=== PATIENT | male | born 1965 | race Hispanic/Latino ===

== ENCOUNTER 2022-11-11 08:33 | Emergency (ER) | payer SELFPAY ==
--- NOTE | 2022-11-11 09:06 | RAD REPORT ---
EXAM DESCRIPTION: Sharon Cole And Olvin (2 Views)11/11/2022 9:00 am CLINICAL HISTORY: Cough COMPARISON: None FINDINGS: The lungs appear clear of acute infiltrate. The heart is normal size IMPRESSION: No acute abnormalities displayed
[2022-11-11 11:27] LABS: Absolute Lymphocytes (CBC) 1.7 K/uL (0.7-4.9); Hematocrit 49.7 % (39.6-49.0); Lymphocytes % 27.2 % (15.3-44.8); MCV 92.1 fL (80-100); MPV 7.5 fL (7.6-11.3)
[2022-11-11 11:46] LABS: SARS-COV-2 RT PCR NEGATIVE (NEGATIVE)
[2022-11-11 11:52] LABS: Troponin High Sensitivity 7.7 pg/mL (<58.9)
--- NOTE | 2022-11-11 12:39 | RAD REPORT ---
EXAM DESCRIPTION: CT - Chest For Pe Angio - 11/11/2022 12:17 pm CLINICAL HISTORY: Chest pain. CHEST PAIN COMPARISON: No comparisons TECHNIQUE: CT angiogram of the pulmonary arteries was performed with MIP. All CT scans are performed using dose optimization technique as appropriate and may include automated exposure control or mA/KV adjustment according to patient size. FINDINGS: No evidence of pulmonary thromboembolism. No acute aortic finding demonstrated. The lungs are clear. No significant pericardial or pleural fluid. No concerning bony finding. IMPRESSION: No evidence of pulmonary thromboembolism. No acute lung findings.
--- NOTE | 2022-11-11 13:09 | EDPHYS ---
Physician Documentation [facility] Name: Anish Santoro Age: 57 yrs Sex: Male : 1965 Arrival Date: 11/11/2022 Time: 08:38 Bed DX3 Private MD: ED Physician Zachary Amos HPI: 11/11 08:47 This 57 yrs old Male presents to ER via Unassigned with complaints of Cough, rn Burning Sensation All Over. 08:47 The patient or guardian reports cough, described as mild, with no sputum. Onset: The rn symptoms/episode began/occurred 3 day(s) ago. Severity of symptoms: At their worst the symptoms were mild, in the emergency department the symptoms are unchanged. Modifying factors: The symptoms are alleviated by nothing, the symptoms are aggravated by nothing. Associated signs and symptoms: Pertinent positives: fever, rhinorrhea, sore throat, Pertinent negatives: diarrhea, ear ache, vomiting. The patient has not experienced similar symptoms in the past. The patient has not recently seen a physician. Pt reports "cold" over the weekend, cough not getting better, + congestion, + subjective fever. NO diarrhea or abd pain. Reports chest burning posterior thorax, no hemoptysis, no hx of PE. + smoker.. Historical: - Allergies: 09:13 No Known Allergies; ss - Home Meds: 09:13 None [Active]; ss - PMHx: 09:13 None; ss - PSHx: 09:13 None; ss - Immunization history:: Client reports receiving the 2nd dose of the Covid vaccine. - Social history:: Smoking status: Patient reports the use of cigarette tobacco products, denies chronic smoking, but will smoke occasionally. - Family history:: not pertinent. - Hospitalizations: : No recent hospitalization is reported. ROS: 08:47 Constitutional: + fever Eyes: Negative for injury, pain, redness, and discharge, ENT: + rn congestion and sore throat Neck: Negative for injury, pain, and swelling, Cardiovascular: Negative for chest pain, palpitations, and edema, Respiratory: + cough Abdomen/GI: Negative for abdominal pain, nausea, vomiting, diarrhea, and constipation, MS/Extremity: Negative for injury and deformity, Skin: Negative for injury, rash, and discoloration, Neuro: Negative for headache, weakness, numbness, tingling, and seizure. Exam: 08:47 Constitutional: This is a well developed, well nourished patient who is awake, alert, rn and in no acute distress. Ambulatory to triage without difficulty Head/Face: Normocephalic, atraumatic. Eyes: Pupils equal round and reactive to light, extra-ocular motions intact. ENT: NO pharyngeal erythema, no stridor, MMM Neck: Trachea midline, no thyromegaly or masses palpated, and no cervical lymphadenopathy. Supple, full range of motion without nuchal rigidity, or vertebral point tenderness. No Meningismus. Cardiovascular: Regular rate and rhythm. No pulse deficits. Respiratory: No increased work of breathing, no retractions or nasal flaring. Abdomen/GI: soft, non-tender Back: No spinal tenderness. No costovertebral tenderness. Full range of motion. Skin: Warm, dry MS/ Extremity: Pulses equal, no cyanosis Neuro: Awake and alert, GCS 15 11:11 ECG was reviewed by the Attending Physician. rn Vital Signs: 09:11 BP 150 / 105; Pulse 71; Resp 18; Temp 98.2(O); Pulse Ox 97% on R/A; Weight 90.72 kg; ss Height 5 ft. 5 in. (165.10 cm); Pain 0/10; 09:11 Body Mass Index 33.28 (90.72 kg, 165.10 cm) ss MDM: 08:39 Patient medically screened. rn 11:04 Differential Diagnosis: Bronchitis Influenza Upper Respiratory Infection Sinusitis rn Pharyngitis Viral Syndrome Pneumonia Other PE, pleurisy, pneumonitis, COVID, flu. Independent interpretation of the following test(s) in the Emergency Department EKG: See my EKG interpretation above X-Ray: My interpretation is CXR images neg for pneumonia/pneumothorax. 13:08 Data reviewed: vital signs, nurses notes, lab test result(s), EKG, radiologic studies, rn CT scan, plain films, and as a result, I will discharge patient. Consideration of Admission/Observation Escalation of care including admission/observation considered. Counseling: I had a detailed discussion with the patient and/or guardian regarding: the historical points, exam findings, and any diagnostic results supporting the discharge/admit diagnosis, lab results, radiology results, the need for outpatient follow up, to return to the emergency department if symptoms worsen or persist or if there are any questions or concerns that arise at home. Counseling: I had a detailed discussion with the patient and/or guardian regarding: smoking cessation. Response to treatment: the patient's symptoms have mildly improved after treatment, and as a result, I will discharge patient. Special discussion: I discussed with the patient/guardian in detail that at this point there is no indication for admission to the hospital. It is understood, however, that if the symptoms persist or worsen the patient needs to return immediately for re-evaluation. 13:08 Counseling: I had a detailed discussion with the patient and/or guardian regarding: the rn presence of at least one elevated blood pressure reading (>120/80) during this emergency department visit. 11/11 08:46 Order name: COVID-19/FLU A+B rn 11/11 10:58 Order name: Basic Metabolic Panel rn 11/11 10:58 Order name: CBC with Diff rn 11/11 10:58 Order name: NT PRO-BNP rn 11/11 10:58 Order name: Troponin HS rn 11/11 11:31 Order name: CBC with Automated Diff; Complete Time: 11:35 EDWY 11/11 08:46 Order name: XRAY Chest Pa And Lat (2 Views) rn 11/11 09:07 Order name: RAD; Complete Time: 10:15 EDWY 11/11 10:58 Order name: CT Chest For PE Angio rn 11/11 11:46 Order name: COVID-19/FLU A+B; Complete Time: 11:50 EDMS 11/11 11:52 Order name: Basic Metabolic Panel; Complete Time: 12:03 EDMS 11/11 11:52 Order name: Troponin High Sensitivity; Complete Time: 12:03 EDMS 11/11 11:52 Order name: NT PRO-BNP; Complete Time: 12:03 EDMS 11/11 12:40 Order name: CT; Complete Time: 13:07 EDMS 11/11 08:46 Order name: EKG; Complete Time: 08:47 rn 11/11 08:46 Order name: EKG - Nurse/Tech; Complete Time: 11:19 rn 11/11 10:58 Order name: IV Saline Lock; Complete Time: 11:19 rn 11/11 10:58 Order name: Labs collected and sent; Complete Time: 11: rn 11/11 10:58 Order name: O2 Per Protocol; Complete Time: 11:19 rn EC:11 Rate is 67 beats/min. Rhythm is regular. QRS Addison is Normal. TN interval is normal. QRS rn interval is normal. QT interval is normal. No Q waves. T waves are Normal. No ST changes noted. Clinical impression: Normal ECG. Interpreted by me. Reviewed by me. Administered Medications: No medications were administered Disposition Summary: 11/11/22 13:09 Discharge Ordered Location: Home rn Problem: new rn Symptoms: have improved rn Condition: Stable rn Diagnosis - Cough rn - Chest pain, unspecified rn Followup: rn - With: Private Physician - When: As needed - Reason: Recheck today's complaints, Re-evaluation by your physician Discharge Instructions: - Discharge Summary Sheet rn - Nonspecific Chest Pain, Adult rn - Hypertension, Adult rn - Pain Without a Known Cause rn - Pleurisy rn - Steps to Quit Smoking rn - Cough, Adult rn Forms: - Medication Reconciliation Form rn - Thank You Letter rn - Antibiotic harness mender - Prescription Opioid Use rn - Work release form ss Signatures: Dispatcher [employer] Zachary Dia MD MD rn Kimberly Luna RN RN
--- NOTE | 2022-11-11 13:09 | ER ---
Nurse's Notes [facility] Name: Anish Santoro Age: 57 yrs Sex: Male : 1965 Arrival Date: 11/11/2022 Time: 08:38 Bed DX3 Private MD: Diagnosis: Cough;Chest pain, unspecified Presentation: 11/11 09:11 Chief complaint: Patient states: intermittent burning sensation that began over a week ss ago to chest, neck and back. Coronavirus screen: Client denies travel out of the [place] in the last 14 days. Ebola Screen: Patient denies exposure to infectious person. Patient denies travel to an Ebola-affected area in the 21 days before illness onset. Initial Sepsis Screen: Does the patient meet any 2 criteria? No. Patient's initial sepsis screen is negative. Does the patient have a suspected source of infection? No. Patient's initial sepsis screen is negative. Risk Assessment: Do you want to hurt yourself or someone else? Patient reports no desire to harm self or others. Onset of symptoms was November 04, 2022. 09:11 Method Of Arrival: Ambulatory ss 09:11 Acuity: AAYUSH 3 ss Historical: - Allergies: 09:13 No Known Allergies; ss - Home Meds: 09:13 None [Active]; ss - PMHx: 09:13 None; ss - PSHx: 09:13 None; ss - Immunization history:: Client reports receiving the 2nd dose of the Covid vaccine. - Social history:: Smoking status: Patient reports the use of cigarette tobacco products, denies chronic smoking, but will smoke occasionally. - Family history:: not pertinent. - Hospitalizations: : No recent hospitalization is reported. Vital Signs: 09:11 BP 150 / 105; Pulse 71; Resp 18; Temp 98.2(O); Pulse Ox 97% on R/A; Weight 90.72 kg; ss Height 5 ft. 5 in. (165.10 cm); Pain 0/10; 09:11 Body Mass Index 33.28 (90.72 kg, 165.10 cm) ED Course: 08:38 Patient arrived in ED. rg4 08:39 Zachary Amos MD is Attending Physician. rn 09:13 Triage completed. ss 09:13 Arm band placed on right wrist. ss 11:19 Inserted saline lock: 22 gauge in left antecubital area, using aseptic technique. Blood ss collected. 13:32 Kimberly Luna, JAKOB is Primary Nurse. ss 13:35 No provider procedures requiring assistance completed. Patient did not have IV access ss during this emergency room visit. Administered Medications: No medications were administered Outcome: 13:09 Discharge ordered by . rn 13:35 Discharged to home ambulatory, with family. ss 13:35 Condition: good 13:35 Discharge instructions given to patient, family, Instructed on discharge instructions, follow up and referral plans. Demonstrated understanding of instructions, follow-up care. 13:35 Patient left the ED. ss Signatures: Zachary Amos MD MD rn Smirch, Shelby, RN RN ss Garcia, Rubi rg4
[2022-11-11 13:40] VITALS: BP 150/105; TEMP 98.2; O2SAT 97
--- NOTE | 2022-11-11 16:37 | EKG ---
Test Date: 2022-11-11 Test Time: 11:10:17 Hand Rug Braider: CLAUDIO MEASUREMENT RESULTS: Intervals: Rate: 67 CT: 180 QRSD: 96 QT: 414 QTc: 437 Fairplay: P: 31 CT: 180 QRS: 9 T: 70 INTERPRETIVE STATEMENTS: Normal sinus rhythm Normal ECG No previous ECG available for comparison Electronically Signed On 11-11-22 16:36:12 PAINT FORMULATOR by Yassine Buchanan
== END 2022-11-11 13:35 | disposition home or self-care (01) ==
LOC: ER 08:33
DX: R05.9 Cough, unspecified (principal); R07.9 Chest pain, unspecified; F17.210 Nicotine dependence, cigarettes, uncomplicated; Z20.822 Contact with and (suspected) exposure to COVID-19
CPT/HCPCS: 0240U; 36415; 71046; 71275; 80048; 83880; 84484; 85025; 93005; 99283

== ENCOUNTER 2023-07-02 14:40 | Emergency (ER) | payer OTHER ==
--- OUTSIDE RECORDS SUMMARY | 2023-07-02 14:43 | XMS REPORT | Continuity of Care Document ---
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 Social History Social Habit Start Date Stop Date Quantity Comments Source Gender identity Tereso crow - External Sexual orientation Tereso Raymundo - External History of tobacco Cigarette Smoker Tereso Raymundo use - External Alcohol Comment 2023-06-05 2023-06-05 social Tereso crow 00:00:00 00:00:00 - External Alcohol intake 2023-06-05 2023-06-05 Current drinker Charla Raymundo 00:00:00 00:00:00 of alcohol - External (finding) History of Social 2023-06-05 2023-06-05 Tereso Raymundo function 00:00:00 00:00:00 - External Sex Ass[birth year] At [birth year] Tereso crow 00:00:00 00:00:00 - External Smoking Status Start Date Stop Date Source Occasional tobacco smoker 2023-06-05 00:00:00 Ryder freitas Seybold - External Medications Ordered Filled Start Stop Current Ordering Indication Dosage Frequency Signature Comments Components Source Medication Medication Date Date Medication? Clinician (SIG) Name Name Amoxicillin 2022- No TAKE 1 Drake y -Pot 05-23 TABLET BY Seybold Clavulanate 00:00: 00:00 MOUTH IN - 875-125 MG 00 :00 THE Externa oral Tablet MORNING l AND 1 IN THE EVENING NEOMYCIN-PO 2022- No INSTILL 3 Tereso LYMYXIN-HC, 05-23 DROPS INTO S eybold OTIC, 1 % 00:00: 00:00 EACH EAR - otic 00 :00 IN THE Externa Solution MORNING, 3 l DROPS AT NOON, 3 DROPS IN THE EVENING AND 3 DROPS BEFORE BEDTIME FOR 10 DAYS Cyclobenzap Yes 5mg Q.5D Take 1 Nika ey rine HCl 5 02 tablet (5 Seyb old MG oral 00:00: mg total) - Tablet 00 by mouth 2 Externa times l daily as needed. Paroxetine 2022- No 20mg Take 1 Nika ey HCl 20 MG 11-21 tablet (20 Sey bold oral Tablet 00:00: 00:00 mg total) - 00 :00 by mouth Externa every l morning. Vital Signs Vital Name Observation Time Observation Value Comments Source Systolic blood 2023-06-05 14:57:00 140 mm[Hg] Tereso Bootheybold - pressure External Diastolic blood 2023-06-05 14:57:00 98 mm[Hg] Charla cardona Seybold - pressure External Heart rate 2023-06-05 14:57:00 72 /min Tereso S lissethbold - External Body temperature 2023-06-05 14:57:00 36.44 Vanda Nika ey Seybold - External Respiratory rate 2023-06-05 14:57:00 15 /min Nika ey Seybold - External Body height 2023-06-05 14:57:00 165.1 cm Tereso Phillips eybold - External Body weight 2023-06-05 14:57:00 91.627 kg Tereso montanezboaury - External BMI 2023-06-05 14:57:00 33.61 kg/m2 Tereso Phillips eybold - External Procedures This patient has no known procedures. Encounters Start End Encounter Admission Attending Care Care Encounter Source Date/Time Date/Time Type Type Clinicians Facility Department ID 2023-07-02 2023-07-02 Outpatient TERESO CANDELARIO [id number] Tereso 00:00:00 00:00:00 GABINO Seybol d 2023-06-12 2023-06-12 Outpatient TERESO BRADSHAW [id number] Tereso 09:30:00 09:30:00 STELLA Seybol d 2023-06-11 2023-06-11 Outpatient TERESO BRADSHAW [id number] Tereso 00:00:00 00:00:00 STELLA Seybol d 2023-06-09 2023-06-09 Outpatient TERESO BRADSHAW [id number] Tereso 00:00:00 00:00:00 STELLA Seybol d 2023-06-05 2023-06-05 Outpatient LAB90 TERESO RIDER [id number] Tereso 10:50:00 10:50:00 Seybol d 2023-06-05 2023-06-05 Outpatient TERESO BRADSHAW [id number] Tereso 10:00:00 10:00:00 STELLA Seybol d 2023-06-05 2023-06-05 Outpatient TERESO RIDER [id number] Tereso 00:00:00 00:00:00 Seybol d Results This patient has no known results.
[2023-07-02] MEDS ORDERED: HYDROCODONE/APAP 5/325 MG TAB ONE (15:20)
--- NOTE | 2023-07-02 16:05 | RAD REPORT ---
EXAM DESCRIPTION: RAD - Forearm Right - 07/02/2023 3:53 pm CLINICAL HISTORY: Pain;Swelling COMPARISON: No comparisons FINDINGS: Soft tissue swelling is seen affecting the forearm. No acute fracture or dislocation.
--- NOTE | 2023-07-02 16:05 | RAD REPORT ---
EXAM DESCRIPTION: RAD - Elbow Right 3 View - 07/02/2023 3:53 pm CLINICAL HISTORY: Pain;Swelling COMPARISON: No comparisons FINDINGS: There is a prominent olecranon spur present. No fracture or dislocation seen. Moderate sof t tissue swelling is evident medially and dorsally.
--- NOTE | 2023-07-02 16:23 | RAD REPORT ---
EXAM DESCRIPTION: US - Extremity Venous Uni Ltd - 07/02/2023 4:18 pm CLINICAL HISTORY: Pain;Swelling Arm swelling and edema. COMPARISON: No comparisons FINDINGS: Right upper extremity venous system was interrogated with Doppler technique. Normal flow, compressibility and augmentation was noted. There is no DVT present. IMPRESSION: No evidence of right upper extremity deep venous thrombosis.
[2023-07-02 16:59] LABS: Absolute Lymphocytes (CBC) 2.3 K/uL (0.7-4.9); Hematocrit 45.1 % (39.6-49.0); Lymphocytes % 19.6 % (15.3-44.8); MPV 7.8 fL (7.6-11.3); Platelets 230 thou/uL (152-406); RBC Red Blood Cell Count 4.86 M/uL (4.33-5.43)
--- NOTE | 2023-07-02 17:03 | ER ---
Nurse's Notes [facility] Name: Anish Santoro Age: 58 yrs Sex: Male : 1965 Arrival Date: 07/02/2023 Time: 14:40 Bed 11 Private MD: Diagnosis: Cellulitis of right upper limb Presentation: 07/02 14:53 Chief complaint: Patient states: he started having right elbow swelling Friday. Patient ap3 denies any trauma to the elbow. patient reports the pain to be 6/10 on the pain scale at this time. Coronavirus screen: At this time, the client does not indicate any symptoms associated with coronavirus-19. Ebola Screen: No symptoms or risks identified at this time. Initial Sepsis Screen: Does the patient meet any 2 criteria? No. Patient's initial sepsis screen is negative. Does the patient have a suspected source of infection? No. Patient's initial sepsis screen is negative. Risk Assessment: Do you want to hurt yourself or someone else? Patient reports no desire to harm self or others. Onset of symptoms was June 30, 2023. 14:53 Method Of Arrival: Ambulatory ap3 14:53 Acuity: AAYUSH 3 ap3 Triage Assessment: 14:55 General: Appears uncomfortable, Behavior is calm, cooperative, appropriate for age. ap3 Pain: Complains of pain in right elbow Pain currently is 6 out of 10 on a pain scale. Pain began gradually, 2-3 days ago. Neuro: Level of Consciousness is awake, alert, obeys commands, Oriented to person, place, time, situation. Cardiovascular: Patient's skin is warm and dry. Respiratory: Airway is patent Respiratory effort is even, unlabored, Respiratory pattern is regular, symmetrical. Historical: - Allergies: 14:54 No Known Allergies; ap3 - Home Meds: 14:54 None [Active]; ap3 - PMHx: 14:54 None; ap3 - Immunization history:: Client reports receiving the 2nd dose of the Covid vaccine. - Social history:: Smoking status: Patient reports the use of cigarette tobacco products, denies chronic smoking, but will smoke occasionally. Screenin:55 [facility] ED Fall Risk Assessment (Adult) History of falling in the last 3 months, ap3 including since admission No falls in past 3 months (0 pts). Abuse screen: Denies threats or abuse. Nutritional screening: No deficits noted. Tuberculosis screening: No symptoms or risk factors identified. Assessment: 15:13 Reassessment: No changes from previously documented assessment. Patient and/or family ll1 updated on plan of care and expected duration. Pain level reassessed. Patient is alert, oriented x 3, equal unlabored respirations, skin warm/dry/pink. 16:59 Reassessment: Patient appears in no apparent distress at this time. Patient and/or iw family updated on plan of care and expected duration. Pain level reassessed. Patient is alert, oriented x 3, equal unlabored respirations, skin warm/dry/pink. Patient states feeling better. Vital Signs: 14:53 BP 143 / 107; Pulse 72; Resp 17; Temp 98.7; Pulse Ox 100% ; Weight 90.72 kg; Pain 6/10; ap3 14:53 Pain Scale: Adult ap3 ED Course: 14:41 Patient arrived in ED. rg4 14:54 Triage completed. ap3 14:55 Trupti Nettles PA-C is PHCP. sb4 14:55 Christian Coto MD is Attending Physician. sb4 14:55 Arm band placed on left wrist. ap3 15:13 Susan Castillo, JAKOB is Primary Nurse. ll1 15:13 Patient has correct armband on for positive identification. Bed in low position. Call ll1 light in reach. Cardiac monitoring not applicable on this patient. 15:54 Elbow Right 3 View XRAY In Process Unspecified. EDMS 15:54 Forearm Right XRAY In Process Unspecified. EDMS 16:12 Angela Ye, RN is Primary Nurse. iw 16:20 Extremity Venous Uni Ltd US In Process Unspecified. EDMS 16:50 Inserted saline lock: 20 gauge in left antecubital area, using aseptic technique. iw 17:01 Brad Terry MD is Referral Physician. sb4 17:33 Provided Education on: medications . iw 17:33 No provider procedures requiring assistance completed. IV discontinued, intact, iw bleeding controlled, No redness/swelling at site. Pressure dressing applied. Administered Medications: 15:11 Drug: HYDROcodone-acetaminophen PO 5 mg-325 mg 2 tabs PO once {Note: pain 7/10, RASS ll1 0.} Route: PO; 17:32 Follow up: Response: No adverse reaction; Pain is decreased iw 16:57 Drug: Clindamycin IVPB 900 mg IVPB once over 30 mins; (mix in 50 mL) Route: IVPB; iw Infused Over: 30 mins; Site: left antecubital; 17:32 Follow up: IV Status: Completed infusion iw Medication: 17:33 VIS not applicable for this client. iw Outcome: 17:02 Discharge ordered by MD. [email or web address] 17:33 Discharged to home ambulatory, with family, iw 17:33 Condition: good 17:33 Discharge instructions given to patient, family, Instructed on discharge instructions, follow up and referral plans. medication usage, Demonstrated understanding of instructions, follow-up care, medications, Prescriptions given X 3, 17:33 Patient left the ED. iw Signatures: Dispatcher [employer] Angela Valencia RN RN Iva Leon rg4 Shania Castle RN RN [email or web address] Susan Castillo RN RN ll1 Trupti Nettles, PA-C PA-Heather sb4
--- NOTE | 2023-07-02 17:03 | EDPHYS ---
Physician Documentation [facility] Name: Anish Santoro Age: 58 yrs Sex: Male : 1965 Arrival Date: 07/02/2023 Time: 14:40 Bed 11 Private MD: ED Physician Christian Coto HPI: 07/02 17:16 This 58 yrs old Male presents to ER via Ambulatory with complaints of Swelling sb4 Of Arm/Elbow. 17:16 Patient states that he noticed his right elbow was starting to swell 2 days ago. He sb4 states that he sustained a minor abrasion at work on his elbow the other day but did not think anything of it. He states that his elbow has slowly become more swollen and is extended into his forearm. He endorses moderate mount of pain with palpation and movement. No pain with supination and pronation, pain increased with extension of the elbow. Denies any fever or chills. No drainage. Historical: - Allergies: 14:54 No Known Allergies; ap3 - Home Meds: 14:54 None [Active]; ap3 - PMHx: 14:54 None; ap3 - Immunization history:: Client reports receiving the 2nd dose of the Covid vaccine. - Social history:: Smoking status: Patient reports the use of cigarette tobacco products, denies chronic smoking, but will smoke occasionally. ROS: 17:16 Constitutional: Negative for fever, chills, and weight loss, sb4 17:16 MS/extremity: Positive for pain, swelling, of the dorsal aspect of right forearm, right elbow and palmar aspect of right forearm, Exam: 17:16 Constitutional: This is a well developed, well nourished patient who is awake, alert, sb4 and in no acute distress. Head/Face: Normocephalic, atraumatic. Eyes: Extra-ocular motions intact. Periorbital areas with no swelling, redness, or edema. ENT: Mucous membranes moist. Neuro: Awake and alert, GCS 15, oriented to person, place, time, and situation. Motor strength 5/5 in all extremities. Sensory grossly intact. 17:16 Musculoskeletal/extremity: ROM: limited active range of motion due to pain, limited passive range of motion due to pain, in the right elbow, Circulation is intact in all extremities. Sensation intact. Compartment Syndrome exam of affected extremity: no numbness, no tingling, no sensation deficit, no palor, no weak pulses, 17:16 Skin: Appearance: Right arm is warm, tense, and tender to the touch. No obvious appearance of cellulitis, Vital Signs: 14:53 BP 143 / 107; Pulse 72; Resp 17; Temp 98.7; Pulse Ox 100% ; Weight 90.72 kg; Pain 6/10; ap3 14:53 Pain Scale: Adult ap3 MDM: 15:00 Patient medically screened. sb4 17:16 Differential diagnosis: Cellulitis, septic joint, joint effusion, fracture, DVT. Data sb4 reviewed: vital signs, nurses notes, lab test result(s), radiologic studies, I have discussed the patient's presentation/case with the attending Emergency Department Physician; and as a result, I will discharge patient. Historians other than the Patient: Spouse/Significant Other: . Counseling: I had a detailed discussion with the patient and/or guardian regarding the historical points, exam findings, and any diagnostic results supporting the discharge/admit diagnosis, the presence of at least one elevated blood pressure reading (>120/80) during this emergency department visit, lab results, radiology results, to return to the emergency department if symptoms worsen or persist or if there are any questions or concerns that arise at home. 07/02 16:30 Order name: CBC with Diff; Complete Time: 17:00 sb4 07/02 16:30 Order name: BMP; Complete Time: 17:09 sb4 07/02 15:01 Order name: Extremity Venous Uni Ltd US; Complete Time: 16:23 sb4 07/02 15:01 Order name: Elbow Right 3 View XRAY; Complete Time: 16:09 sb4 07/02 15:01 Order name: Forearm Right XRAY; Complete Time: 16:09 sb4 07/02 16:40 Order name: Ice pack; Complete Time: 17:32 sb4 07/02 17:13 Order name: Sling; Complete Time: 17:32 sb4 Administered Medications: 15:11 Drug: HYDROcodone-acetaminophen PO 5 mg-325 mg 2 tabs PO once {Note: pain 7/10, RASS ll1 0.} Route: PO; 17:32 Follow up: Response: No adverse reaction; Pain is decreased iw 16:57 Drug: Clindamycin IVPB 900 mg IVPB once over 30 mins; (mix in 50 mL) Route: IVPB; iw Infused Over: 30 mins; Site: left antecubital; 17:32 Follow up: IV Status: Completed infusion iw Disposition: 17:58 Co-signature as Attending Physician, Christian Coto MD I agree with the assessment and kdr plan of care. Disposition Summary: 07/02/23 17:02 Discharge Ordered Notes: Location: Home sb4 Problem: new sb4 Symptoms: have improved sb4 Condition: Stable sb4 Diagnosis - Cellulitis of right upper limb sb4 Followup: sb4 - With: Brad Terry MD - When: 1 week - Reason: Recheck today's complaints, Re-evaluation by your physician Discharge Instructions: - Discharge Summary Sheet sb4 - Cellulitis, Adult sb4 Forms: - Work release form sb4 - Medication Reconciliation Form sb4 - Thank You Letter sb4 - Antibiotic Education sb4 - Prescription Opioid Use sb4 - Patient Portal Instructions sb4 - Leadership Thank You Letter sb4 Prescriptions: - Tramadol 50 mg Oral Tablet - take 1 tablet ORAL route every 8 hours as needed; 12 tablet; Refills: 0, sb4 Product Selection Permitted - Medrol (Ced) 4 mg Oral Tablets, Dose Pack - take 1 tablet ORAL route as directed - follow package instructions; 1 packet; sb4 Refills: 0, Product Selection Permitted - Bactrim DS 800-160 mg Oral Tablet - take 1 tablet ORAL route every 12 hours for 10 days; 20 tablet; Refills: 0, sb4 Product Selection Permitted Signatures: Dispatcher [employer] Christian Hernandez MD MD kdr Williams, Irene, RN RN Shania Houser RN RN ap3 Susan Castillo RN RN ll1 Trupti Nettles PA-C PAModesta sb4
[2023-07-02] MEDS ORDERED: CLINDAMYCIN 900MG/D5W 900 MG/50 ML IVPB IV ONE (17:07)
[2023-07-02 17:08] LABS: Potassium 3.7 mEq/L (3.5-5.1)
[2023-07-02 18:22] VITALS: BP 143/107; TEMP 98.7; O2SAT 100
== END 2023-07-02 17:33 | disposition home or self-care (01) ==
LOC: ER 14:40
DX: L03.113 Cellulitis of right upper limb (principal); F17.210 Nicotine dependence, cigarettes, uncomplicated
CPT/HCPCS: 36415; 80048; 85025; 93971

== ENCOUNTER 2024-03-23 10:09 | Emergency (ER) | payer OTHER ==
--- OUTSIDE RECORDS SUMMARY | 2024-03-23 10:12 | XMS REPORT | Continuity of Care Document ---
Author Name Unknown Address [address] [place] [address]. [address] th[address] Address [address] [facility]. 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 9 [id number] 2023 00:00:00 Problems Condition Name Condition Details Condition Category Status Onset Date Resolution Date Last Treatment Date Treating Clinician Comments Source Myxoid cyst Myxoid cyst Disease Active 02-02 00:00: 00 Tereso Cooperold - Externa l Well adult exam Well adult exam Disease Active 06-05 00:00: 00 Tereso Raymundo - Externa l Muscle spasms of both lower extremitie s Muscle spasms of both lower extremitie s Disease Active 06-05 00:00: 00 Tereso Cooperold - Externa l Obesity (BMI 30-39.9) Obesity (BMI 30-39.9) Disease Active 06-05 00:00: 00 Tereso Cooperold - Externa l Muscle spasms of both lower extremitie s Muscle spasms of both lower extremitie s Disease Active 06-05 00:00: 00 Tereso Bootheybold - Externa l Social History Social Habit Start Date Stop Date Quantity Comments Source Gender identity Nika Raymundo - External Sexual orientation Shaun Raymundo - External History of tobacco use Cigarette Smoker Tereso Kenneth ramos - External Alcoholic beverage intake 2024-02-03 00:00:00 2024-02-03 00:00:00 Current drinker of alcohol (finding) Tereso Breanne - External Alcohol intake 2023-07-10 00:00:00 2023-07-10 00:00:00 Current drinker of alcohol (finding) Tereso Raymundo - External History of Social function 2023-06-10 00:00:00 2023-06-10 00:00:00 Tereso Raymundo - External Alcohol Comment 2023-06-05 00:00:00 2023-06-05 00:00:00 social Tereso Raymundo - External Sex [birth year] at 1965 00:00:00 1965 00:00:00 Teresoolinda Raymundo - External Smoking Status Start Date Stop Date Source Occasional tobacco smoker 2023-06-05 00:00:00 Tereso Raymundo - External Medications Ordered Medication Name Filled Medication Name Start Date Stop Date Current Medication? Ordering Clinician Indication Dosage Frequency Signature (SIG) Comments Components Source Amoxicillin -Pot Clavulanate 875-125 MG oral Tablet 02-02 00:00: 00 Yes [id number] 1{tbl} Take 1 tablet by mouth 2 times daily Please take with food. Tereso mcfarland TRIMETHOPRI M-SULFAMETH OXAZOLE (BACTRIM DS) 800-160 MG oral Tablet 2022-09 0 00:00: 00 02-02 00:00 :00 No 1{tbl} Take 1 tablet by mouth every 12 hours FOR 10 DAYS. Tereso mcfarland Tramadol HCl (ULTRAM) 50 MG oral Tablet 2022-09 0 00:00: 00 02-02 00:00 :00 No 50mg [id number] 3D Take 1 tablet (50 mg total) by mouth every 8 hours as needed. Tereso mcfarland methylPREDN ISolone 4 MG oral Tablet Therapy Pack 2022-09 0 00:00: 00 02-02 00:00 :00 No TAKE BY MOUTH DIRECTED ON INSIDE OF PACKAGE Tereso mcfarland Amoxicillin -Pot Clavulanate 875-125 MG oral Tablet 9-01 00:00: 00 06-05 00:00 :00 No TAKE 1 TABLET BY MOUTH IN THE MORNING AND 1 IN THE EVENING Tereso mcfarland NEOMYCIN-PO LYMYXIN-HC, OTIC, 1 % otic Solution 9-01 00:00: 00 06-05 00:00 :00 No INSTILL 3 DROPS INTO EACH EAR IN THE MORNING, 3 DROPS AT NOON, 3 DROPS IN THE EVENING AND 3 DROPS BEFORE BEDTIME FOR 10 DAYS Tereso mcfarland Cyclobenzap rine HCl 5 MG oral Tablet 3-02 00:00: 00 02-02 00:00 :00 No 5mg Q.5D Take 1 tablet (5 mg total) by mouth 2 times daily as needed. Tereso mcfarland Paroxetine HCl 20 MG oral Tablet 3-02 00:00: 00 06-05 00:00 :00 No 20mg Take 1 tablet (20 mg total) by mouth every morning. Tereso mcfarland Immunizations Ordered Immunization Name Filled Immunization Name Date Status Comments Source Influenza, Injectable, Mdck, Quadrivalent With Preservative 2023-06-05 00:00:00 Completed Tereso Raymundo - External Influenza, Injectable, Mdck, Quadrivalent With Preservative Unknown Completed Tereso Messina Influenza, Injectable, Mdck, Quadrivalent With Preservative Unknown Completed Tereso Raymundo - External Vital Signs Vital Name Observation Time Observation Value Comments S ource Systolic blood pressure 2024-02-03 18:46:00 130 mm[Hg] Tereso jeffers - External Diastolic blood pressure 2024-02-03 18:46:00 72 mm[Hg] Tereso jeffers - External Heart rate 2024-02-03 18:46:00 77 /min Charla Raymundo - External Body temperature 2024-02-03 18:46:00 36.83 Vanda Tereso Messina Respiratory rate 2024-02-03 18:46:00 20 /min Tereso Haskins External Body height 2024-02-03 18:46:00 165.1 cm Nika ey Seybold - External Body weight 2024-02-03 18:46:00 90.266 kg Nika ey Seybold - External BMI 2024-02-03 18:46:00 33.12 kg/m2 Nika ey Seybold - External Oxygen saturation in Arterial blood by Pulse oximetry 2024-02-03 18:46:00 93 /min Tereso Seybo ld - External Systolic blood pressure 2023-07-10 21:17:00 134 mm[Hg] Tereso Seybo ld - External Diastolic blood pressure 2023-07-10 21:17:00 84 mm[Hg] Tereso Seybo ld - External Heart rate 2023-07-10 20:55:00 93 /min Kelse y Seybold - External Body temperature 2023-07-10 20:55:00 36.5 Vanda Tereso Seybold - External Respiratory rate 2023-07-10 20:55:00 15 /min Tereso Seybold - External Body height 2023-07-10 20:55:00 165.1 cm Nika ey Seybold - External Body weight 2023-07-10 20:55:00 91.627 kg Nika ey Seybold - External BMI 2023-07-10 20:55:00 33.61 kg/m2 Nika ey Seybold - External Oxygen saturation in Arterial blood by Pulse oximetry 2023-07-10 20:55:00 99 /min Tereso Seybo ld - External Systolic blood pressure 2023-06-05 14:57:00 140 mm[Hg] Tereso Seybo ld - External Diastolic blood pressure 2023-06-05 14:57:00 98 mm[Hg] Tereso Seybo ld - External Heart rate 2023-06-05 14:57:00 72 /min Kelse y Seybold - External Body temperature 2023-06-05 14:57:00 36.44 Vanda Tereso Seybold - External Respiratory rate 2023-06-05 14:57:00 15 /min Tereso Seybold - External Body height 2023-06-05 14:57:00 165.1 cm Nika ey Seybold - External Body weight 2023-06-05 14:57:00 91.627 kg Nika ey Seybold - External BMI 2023-06-05 14:57:00 33.61 kg/m2 Nika Raymundo - External Encounters Start Date/Time End Date/Time Encounter Type Admission Type Attending [facility] Care Department Encounter ID Source 2024-02-17 13:00:00 2024-02-17 13:00:00 Outpatient KELLE TURCIOS [facility] [id number] [facility] 2024-02-03 14:00:00 2024-02-03 14:00:00 Outpatient STELLA BRADSHAW TERESO [id number] Tereso [facility] 2024-02-03 00:00:00 2024-02-03 00:00:00 Outpatient TERESO TERESO [id number] Tereso [facility] 2023-11-25 13:30:00 2023-11-25 13:30:00 Outpatient STELLA BRADSHAW TERESO TERESO [id number] Tereso [facility] 2023-11-17 00:00:00 2023-11-17 00:00:00 Outpatient STELLA BRADSHAW TERESO TERESO [id number] Tereso [facility] 2023-07-24 16:00:00 2023-07-24 16:00:00 Outpatient STELLA BRADSHAW TERESO RIDER [id number] [facility] 2023-07-11 00:00:00 2023-07-11 00:00:00 Outpatient STELLA BRADSHAW TERESO RIDER [id number] [facility] 2023-07-10 16:00:00 2023-07-10 16:00:00 Outpatient STELLA BRADSHAW TERESO TERESO [id number] Tereso [facility] 2023-07-08 00:00:00 2023-07-08 00:00:00 Outpatient ALLYSONGABINO Phillips TERESO RIDER [id number] [facility] 2023-07-02 00:00:00 2023-07-02 00:00:00 Outpatient YO CANDELARIOAND [facility]DI[facility] [id number] [facility]12 09:30:00 2023-06-12 09:30:00 Outpatient LEEANN STELLA TERESO RIDER [id number] [facility] 2023-06-11 00:00:00 2023-06-11 00:00:00 Outpatient STELLA BRADSHAW [id number] Teres[facility] 2023-06-09 00:00:00 2023-06-09 00:00:00 Outpatient STELLA BRADSHAW [id number] Te[facility] 2023-06-05 10:50:00 2023-06-05 10:50:00 Outpatient LAB90 TERESO RIDER [id number] [facility] 2023-06-05 10:00:00 2023-06-05 10:00:00 Outpatient STELLA BRADSHAW [id number] Te[facility] 2023-06-05 00:00:00 2023-06-05 00:00:00 Outpatient TERESO TERESO [id number] Tereso [facility] Notes Date/Time Note Provider Source 2023-06-05 10:02:50 [id number]:50F ormatting of this note is different from the original.Chief Complaint Patient presents with Physical Patient is fasting. No other issues [place] [id number] [id number]:03:52Nurse [id number] for patient [id number] NoteLNKELMERCY HEALTH [facility]IETTAEPRegency Hospital [facility] [facility] [id number] [facility]"
[2024-03-23] MEDS ORDERED: KETOROLAC 30 MG/ML INJ ONE (10:37)
[2024-03-23 10:55] LABS: Absolute Eosinophils 0.2 K/uL (0-0.5); Absolute Lymphocytes (CBC) 2.1 K/uL (0.7-4.9); Absolute Monocytes 0.7 K/uL (0.1-1.3); Absolute Neutrophil 5.6 K/uL (1.8-8.0); Basophils % 0.5 % (0-1.3); Eosinophils % 2.8 % (0-4.4); Hematocrit 48.1 % (39.6-49.0); Hemoglobin 16.3 g/dL (13.6-17.9); Lymphocytes % 24.7 % (15.3-44.8); MCH 31.6 pg (27.0-35.0); MCV 93.1 fL (80-100); MPV 7.8 fL (7.6-11.3); Monocytes % 7.9 % (3.3-12.3); Neutrophils % 64.1 % (41.7-73.7); Nucleated Red Blood Cells % 0.1 % (0-0); Platelets 266 thou/uL (152-406); RBC Red Blood Cell Count 5.17 M/uL (4.33-5.43); Red Cell Distribution Width 13.1 % (12.1-15.2)
[2024-03-23 10:59] LABS: PT Prothrombin Time 12.2 SECONDS (9.4-12.5); PTT, Activated Partial Thromb 32.7 SECONDS (24.3-36.9); Protime INR 1.11
[2024-03-23 11:05] LABS: Anion Gap 7.2 mEq/L (5.0-15.0); Potassium 4.2 mEq/L (3.5-5.1); Troponin High Sensitivity 4.8 pg/mL (<58.9)
--- NOTE | 2024-03-23 11:44 | RAD REPORT ---
EXAM DESCRIPTION: US - Extremity Venous Uni Ltd - 03/23/2024 11:07 am CLINICAL HISTORY: Pain and swelling COMPARISON: None. TECHNIQUE: Real-time sonographic evaluation of the left lower extremity deep venous system was perfo rmed. FINDINGS: Normal compressibility, flow augmentation, phasic flow and spontaneous flow is identified in the left lower extremity deep venous system. No intraluminal filling defects seen. Lobular structure in the popliteal fossa measuring 2 cm which appears solid. . A popliteal fossa cyst is present measuring 1.6 cm x 2.1 cm. IMPRESSION: No DVT in the left lower extremity. Lobular solid-appearing structure in the popliteal fossa of uncertain etiology, possibly an enlarged lymph node. Could consider MRI with without contras t for further evaluation. A popliteal fossa cyst is also noted.
--- NOTE | 2024-03-23 11:53 | ER ---
Nurse's Notes [facility] Name: Anish Santoro Age: 59 yrs Sex: Male : 1965 Arrival Date: 03/23/2024 Time: 10:09 Bed 4 Private MD: Diagnosis: Synovial cyst of popliteal space [Martini], left knee Presentation: 03/23 10:24 Chief complaint: Patient states: LEFT KNEE PAIN AND SWELLING X 1 WEEK. STATES MORE PAIN db IN BACK OF KNEE. DENIES RECENT INJURY OR DOING ANYTHING STRENUOUS. Coronavirus screen: Client denies travel out of the [place] in the last 14 days. At this time, the client does not indicate any symptoms associated with coronavirus-19. Ebola Screen: Patient negative for fever greater than or equal to 101.5 degrees Fahrenheit, and additional compatible Ebola Virus Disease symptoms Patient denies exposure to infectious person. Patient denies travel to an Ebola-affected area in the 21 days before illness onset. No symptoms or risks identified at this time. Initial Sepsis Screen: Does the patient meet any 2 criteria? No. Patient's initial sepsis screen is negative. Does the patient have a suspected source of infection? No. Patient's initial sepsis screen is negative. Risk Assessment: Do you want to hurt yourself or someone else? Patient reports no desire to harm self or others. Onset of symptoms was March 16, 2024. 10:24 Method Of Arrival: Ambulatory db 10:24 Acuity: AAYUSH 3 db Triage Assessment: 10:25 General: Appears in no apparent distress. comfortable, Behavior is calm, cooperative. db Pain: Complains of pain in left leg. Neuro: Level of Consciousness is awake, alert, obeys commands, Oriented to person, place, time, situation. Cardiovascular: No deficits noted. Respiratory: No deficits noted. Airway is patent Respiratory effort is even, unlabored, Respiratory pattern is regular, symmetrical. GI: No deficits noted. No signs and/or symptoms were reported involving the gastrointestinal system. : No deficits noted. No signs and/or symptoms were reported regarding the genitourinary system. Musculoskeletal: Range of motion: limited in left knee. Historical: - Allergies: 10:25 No Known Allergies; db - PMHx: 10:25 None; db - Immunization history:: Adult Immunizations unknown. - Infectious Disease History:: Denies. - Social history:: Smoking status: Patient reports the use of cigarette tobacco products, denies chronic smoking, but will smoke occasionally. Screenin:41 [facility] ED Fall Risk Assessment (Adult) History of falling in the last 3 months, ld1 including since admission No falls in past 3 months (0 pts) Confusion or Disorientation No (0 pts) Intoxicated or Sedated No (0 pts) Impaired Gait No (0 pts) Mobility Assist Device Used No (0 pt) Altered Elimination No (0 pt) Score/Fall Risk Level 0 - 2 = Low Risk Oriented to surroundings, Maintained a safe environment, Educated pt \T\ family on fall prevention, incl call for assistance when getting out of bed, Assessed \T\ reinforced patient's understanding of fall precautions, Provided non-skid footwear, Hourly rounding (assess needs \T\ fall precautionary measures) done, Used ambulatory aids as needed (educated on \T\ assisted with), Used gait belt as appropriate. Abuse screen: Denies threats or abuse. Denies injuries from another. Nutritional screening: No deficits noted. Tuberculosis screening: No symptoms or risk factors identified. Assessment: 10:41 General: Appears in no apparent distress. comfortable, Behavior is calm, cooperative, ld1 appropriate for age. Pain: Complains of pain in left leg Pain does not radiate. Pain currently is 7 out of 10 on a pain scale. Quality of pain is described as pressure, throbbing, Pain began 2-3 days ago. Is continuous. Neuro: Level of Consciousness is awake, alert, obeys commands, Oriented to person, place, time, situation. Cardiovascular: Capillary refill < 3 seconds Patient's skin is warm and dry. Rhythm is sinus rhythm. Respiratory: Airway is patent Respiratory effort is even, unlabored. GI: Abdomen is round non-distended. : No signs and/or symptoms were reported regarding the genitourinary system. EENT: No signs and/or symptoms were reported regarding the EENT system. Derm: No signs and/or symptoms reported regarding the dermatologic system. Musculoskeletal: No signs and/or symptoms reported regarding the musculoskeletal system. 12:04 General: Appears in no apparent distress. Behavior is calm, cooperative, appropriate ld1 for age. 12:04 Reassessment: Patient appears in no apparent distress at this time. No changes from ld1 previously documented assessment. Patient and/or family updated on plan of care and expected duration. Pain level reassessed. Vital Signs: 10:24 BP 142 / 88; Pulse 70; Resp 16; Temp 98.8(O); Pulse Ox 100% on R/A; Weight 88.9 kg; db Height 5 ft. 5 in. ; 12:05 BP 139 / 76; Pulse 74; Resp 18; Pulse Ox 100% on R/A; Pain 4/10; ld1 10:24 Body Mass Index 32.62 (88.90 kg, 165.1 cm) db 12:05 Pain Scale: Adult ld1 ED Course: 10:13 Patient arrived in ED. mg5 10:13 Los Ramires MD is Attending Physician. ec2 10:18 Jil Elizabeth, JAKOB is Primary Nurse. ld1 10:25 Triage completed. db 10:25 Arm band placed on Patient placed in an exam room. db 10:40 Ptt, Activated Sent. bc6 10:40 Basic Metabolic Panel Sent. bc6 10:40 CBC with Diff Sent. bc6 10:40 PT-INR Sent. bc6 10:40 Troponin HS Sent. bc6 10:40 Initial lab(s) drawn, by nm, sent to lab. Inserted saline lock: 22 gauge in left bc6 antecubital area, using aseptic technique. Blood collected. 10:41 Patient has correct armband on for positive identification. Placed in gown. Bed in low ld1 position. Call light in reach. Side rails up X2. limousine driver on. Pulse ox on. NIBP on. Door closed. Noise minimized. Warm blanket given. 10:41 No provider procedures requiring assistance completed. ld1 11:09 Extremity Venous Uni Ltd US In Process Unspecified. EDMS 11:52 Brad Terry MD is Referral Physician. ec2 12:05 IV discontinued, intact, bleeding controlled, No redness/swelling at site. ld1 Administered Medications: 11:50 Drug: Ketorolac IVP 15 mg IVP once Route: IVP; Site: left antecubital; ld1 Medication: 10:41 VIS not applicable for this client. ld1 Outcome: 11:52 Discharge ordered by . ec2 12:05 Discharged to home ambulatory, with family, ld1 12:05 Condition: stable 12:05 Discharge instructions given to patient, family, Instructed on discharge instructions, follow up and referral plans. medication usage, Demonstrated understanding of instructions, follow-up care, medications, 12:05 Patient left the ED. ld1 Signatures: Dispatcher [employer] Jil Fair RN RN ld1 Sofie Bettencourt RN RN db Ele Troy 6 Marine Mendez mg5 Los Ramires MD MD ec2 Corrections: (The following items were deleted from the chart) 10:25 10:24 Onset of symptoms was March 23, 2024 inessa wylie
--- NOTE | 2024-03-23 11:53 | EDPHYS ---
Physician Documentation [facility] Name: Anish Santoro Age: 59 yrs Sex: Male : 1965 Arrival Date: 03/23/2024 Time: 10:09 Bed 4 Private MD: ED Physician Los Ramires HPI: 03/23 10:32 This 59 yrs old Male presents to ER via Ambulatory with complaints of Leg ec2 Swelling. 10:32 Patient arrives today for evaluation of left lower extremity swelling. Patient reports ec2 progressive swelling and pain to the left lower extremity. No falls injuries or trauma. No history of DVT, no history of cardiac pathology. Does not take medications, no significant medical problems.. Historical: - Allergies: 10:25 No Known Allergies; db - PMHx: 10:25 None; db - Immunization history:: Adult Immunizations unknown. - Infectious Disease History:: Denies. - Social history:: Smoking status: Patient reports the use of cigarette tobacco products, denies chronic smoking, but will smoke occasionally. ROS: 10:32 Constitutional: as per hpi ec2 Exam: 10:32 Constitutional: GEN: NAD Head: atraumatic Eyes: EOMI Ears: External ears are ec2 normal. CV: regular rate, left lower extremity with 2+ edema noted. Intact distal neurovascular status. LUNGS: no respiratory distress ABD: non-distended SKIN: no evidence of rashes MSK: no evidence of trauma NEURO: moves all extremities equally Vital Signs: 10:24 BP 142 / 88; Pulse 70; Resp 16; Temp 98.8(O); Pulse Ox 100% on R/A; Weight 88.9 kg; db Height 5 ft. 5 in. ; 12:05 BP 139 / 76; Pulse 74; Resp 18; Pulse Ox 100% on R/A; Pain 4/10; ld1 10:24 Body Mass Index 32.62 (88.90 kg, 165.1 cm) db 12:05 Pain Scale: Adult ld1 MDM: 10:25 Patient medically screened. ec2 10:32 Data reviewed: vital signs. ED course: Patient arrives today for evaluation of left ec2 lower extremity swelling and pain. Examination remarkable for cardiovascular findings as noted above. Will obtain lab work, ultrasound. Differential diagnosis includes Martini's cyst, DVT, doubt septic joint.. 10:46 ED course: EKG independently reviewed and interpreted by me, shows normal sinus rhythm, ec2 rate of 61, no acute ST segment elevations, intervals are nonconcerning.. 11:29 ED course: Metabolic profile, coagulation profile is not external, troponin within ec2 normal ranges. Pending ultrasound. . 11:48 ED course: Ultrasound with no evidence of DVT, does show possible enlarged lymph node ec2 versus possible popliteal cyst. Patient to follow-up outpatient with his primary care doctor for this. Patient does not require emergent MRI or CT for this. Instructed patient on compression, [id number] medications for pain. Will discharge home. Return precautions given. . 07 10:31 Order name: Basic Metabolic Panel; Complete Time: 11:29 ec2 03/23 10:31 Order name: CBC with Diff; Complete Time: 11:29 ec2 03/23 10:31 Order name: PT-INR; Complete Time: 11:29 ec2 03/23 10:31 Order name: Troponin HS; Complete Time: 11:29 ec2 03/23 10:31 Order name: Ptt, Activated; Complete Time: 11:29 ec2 03/23 10:31 Order name: Extremity Venous Uni Ltd US; Complete Time: 11:47 ec2 03/23 10:31 Order name: EKG; Complete Time: 10:32 ec2 03/23 10:31 Order name: Cardiac monitoring; Complete Time: 10:40 ec2 03/23 10:31 Order name: EKG - Nurse/Tech; Complete Time: 10:40 ec2 03/23 10:31 Order name: IV Saline Lock; Complete Time: 10:40 ec2 03/23 10:31 Order name: Labs collected and sent; Complete Time: 10:40 ec2 03/23 10:31 Order name: O2 Per Protocol; Complete Time: 10:40 ec2 03/23 10:31 Order name: O2 Sat Monitoring; Complete Time: 10:40 ec2 03/23 11:52 Order name: David Wrap; Complete Time: 12:04 ec2 Administered Medications: 11:50 Drug: Ketorolac IVP 15 mg IVP once Route: IVP; Site: left antecubital; ld1 Disposition Summary: 03/23/24 11:52 Discharge Ordered Notes: Location: Home ec2 Condition: Stable ec2 Diagnosis - Synovial cyst of popliteal space [Martini], left knee ec2 Followup: ec2 - With: Brad Terry MD - When: - Reason: Recheck today's complaints Discharge Instructions: - Discharge Summary Sheet ec2 - Martini Cyst ec2 Forms: - Medication Reconciliation Form ec2 - Antibiotic Education ec2 - Prescription Opioid Use ec2 - Patient Portal Instructions ec2 - Leadership Thank You Letter ec2 Signatures: Dispatcher [employer] Jil Fair RN RN ld1 Sofie Bettencourt RN RN db Los Ramires MD MD ec2 Corrections: (The following items were deleted from the chart) 10:32 10:32 Extremity Venous Uni Ltd+[email or web address] ordered. EDMS EDMS
[2024-03-23 12:30] VITALS: BP 139/76; TEMP 98.8; O2SAT 100
== END 2024-03-23 12:05 | disposition home or self-care (01) ==
LOC: ER 10:09
DX: M71.22 Synovial cyst of popliteal space [Baker], left knee (principal); F17.210 Nicotine dependence, cigarettes, uncomplicated
CPT/HCPCS: 36415; 80048; 84484; 85025; 85610; 85730; 93005; 93971